=== PATIENT | female | born 1970 | race Caucasian/White ===

== ENCOUNTER 2018-04-04 03:27 | Inpatient (IN) | payer SELFPAY ==
[~2018-04-04] VITALS: Ht 172.7 cm; Wt 68.0 kg
[2018-04-04 03:58] LABS: BASO # 0.1 x10^3/uL (0.0-0.2); BASO % 1 % (0-3); EOS # 0.1 x10^3/uL (0.0-0.7); EOS % 2 % (0-3); HEMOGLOBIN 11.6 g/dL (12.0-15.5); LYMPH # 2.7 x10^3/uL (1.0-4.8); LYMPH % 31 % (24-48); MEAN CORPUSCULAR HEMOGLOBIN 26 pg (25-35); MEAN CORPUSCULAR HGB CONC 33 g/dL (31-37); MEAN CORPUSCULAR VOLUME 79 fL (79-100); MONO # 0.7 x10^3/uL (0.0-1.1); MONO % 8 % (0-9); NEUT % 58 % (31-73); PLATELET COUNT 386 x10^3/uL (140-400); RED BLOOD COUNT 4.42 x10^6/uL (3.50-5.40); RED CELL DISTRIBUTION WIDTH 23.2 % (11.5-14.5); WHITE BLOOD COUNT 8.7 x10^3/uL (4.0-11.0)
[2018-04-04 04:05] LABS: CALCIUM 9.8 mg/dL (8.5-10.1); CREATININE 0.7 mg/dL (0.6-1.0); GFR 88.6; POTASSIUM 3.8 mmol/L (3.5-5.1)
[2018-04-04 04:10] LABS: ALBUMIN 3.3 g/dL (3.4-5.0); ALBUMIN/GLOBULIN RATIO 1.1 (1.0-1.7); TOTAL BILIRUBIN 0.1 mg/dL (0.2-1.0); TOTAL PROTEIN 6.4 g/dL (6.4-8.2)
[2018-04-04] MEDS: NITROGLYCERIN SUBLINGUAL 0.4 MG BOTTLE OF 25. SL PRN ×3 (04:20→06:37)
--- NOTE | 2018-04-04 04:25 | PHYS DOC ---
Past Medical History Past Medical History: Anxiety, Diabetes-Type II Additional Past Medical Histor: Panic Attacks Past Surgical History: No Surgical History Additional Information: 1 ppd Alcohol Use: None Drug Use: Marijuana Adult General Chief Complaint Chief Complaint: CHEST PAIN HPI HPI Patient is a 48 year old male with history of type 2 diabetes anxiety presents with acute onset left-sided chest pain rating to left shoulder while having sexual intercourse with her significant other. Described as soreness. Initially associated with shortness of breath. Patient denies nausea vomiting, sweats. No back pain. Has not had prior episodes of chest pain. No leg pain or swelling. No other acute symptoms or complaints. [] Review of Systems Review of Systems Review symptoms and says... All other review symptoms are negative. [] All other systems were reviewed and found to be within normal limits, except as documented in this note. Current Medications Current Medications Current Medications Medications (Trade) Dose Ordered Sig/Dagoberto Start Time Stop Time Status Last Admin Dose Admin Aspirin (Children'S Aspirin) 324 mg 1X ONCE 04/04/18 04:45 04/04/18 04:46 UNV Nitroglycerin (Nitrostat) 0.4 mg PRN Q5MIN PRN 04/04/18 04:15 04/04/18 04:20 0.4 MG Allergies Allergies Allergies Coded Allergies Type Severity Reaction Last Updated Verified No Known Drug Allergies 04/04/18 No Physical Exam Physical Exam Constitutional: Well developed, well nourished, no acute distress, non-toxic appearance. [] HENT: Normocephalic, atraumatic, bilateral external ears normal, oropharynx moist, no oral exudates, nose normal. [] Eyes: PERRLA, EOMI, conjunctiva normal, no discharge. [] Neck: Normal range of motion, no tenderness, supple, no stridor. [] Cardiovascular:Heart rate regular rhythm, no murmur [] Lungs & Thorax: Bilateral breath sounds clear to auscultation [] Abdomen: Bowel sounds normal, soft, no tenderness, no masses, no pulsatile masses. [] Skin: Warm, dry, no erythema, no rash. [] Back: No tenderness, no CVA tenderness. [] Extremities: No tenderness, no cyanosis, no clubbing, ROM intact, no edema. [] Neurologic: Alert and oriented X 3, normal motor function, normal sensory function, no focal deficits noted. [] Psychologic: Affect, anxious[] Current Patient Data Vital Signs Vital Signs Date Time Temp Pulse Resp B/P (MAP) Pulse Ox O2 Delivery O2 Flow Rate FiO2 04/04/18 04:21 67 16 133/61 (85) 99 Room Air 04/04/18 03:35 98.3 98.3 Lab Values Laboratory Tests Test 04/04/18 03:45 White Blood Count 8.7 x10^3/uL (4.0-11.0) Red Blood Count 4.42 x10^6/uL (3.50-5.40) Hemoglobin 11.6 g/dL (12.0-15.5) L Hematocrit 35.0 % (36.0-47.0) L Mean Corpuscular Volume 79 fL (79-100) Mean Corpuscular Hemoglobin 26 pg (25-35) Mean Corpuscular Hemoglobin Concent 33 g/dL (31-37) Red Cell Distribution Width 23.2 % (11.5-14.5) H Platelet Count 386 x10^3/uL (140-400) Neutrophils (%) (Auto) 58 % (31-73) Lymphocytes (%) (Auto) 31 % (24-48) Monocytes (%) (Auto) 8 % (0-9) Eosinophils (%) (Auto) 2 % (0-3) Basophils (%) (Auto) 1 % (0-3) Neutrophils # (Auto) 5.0 x10^3uL (1.8-7.7) Lymphocytes # (Auto) 2.7 x10^3/uL (1.0-4.8) Monocytes # (Auto) 0.7 x10^3/uL (0.0-1.1) Eosinophils # (Auto) 0.1 x10^3/uL (0.0-0.7) Basophils # (Auto) 0.1 x10^3/uL (0.0-0.2) Platelet Estimate Pending Sodium Level 144 mmol/L (136-145) Potassium Level 3.8 mmol/L (3.5-5.1) Chloride Level 105 mmol/L (98-107) Carbon Dioxide Level 29 mmol/L (21-32) Anion Gap 10 (6-14) Blood Urea Nitrogen 11 mg/dL (7-20) Creatinine 0.7 mg/dL (0.6-1.0) Estimated GFR (Cockcroft-Gault) 88.6 BUN/Creatinine Ratio 16 (6-20) Glucose Level 117 mg/dL (70-99) H Calcium Level 9.8 mg/dL (8.5-10.1) Total Bilirubin 0.1 mg/dL (0.2-1.0) L Aspartate Amino Transferase (AST) 17 U/L (15-37) Alanine Aminotransferase (ALT) 17 U/L (14-59) Alkaline Phosphatase 79 U/L (46-116) Troponin I Quantitative < 0.017 ng/mL (0.000-0.055) Total Protein 6.4 g/dL (6.4-8.2) Albumin 3.3 g/dL (3.4-5.0) L Albumin/Globulin Ratio 1.1 (1.0-1.7) Laboratory Tests 04/04/18 03:45 Laboratory Tests 04/04/18 03:45 EKG EKG [EKG: Normal sinus rhythm, no acute ST-T wave changes. QTC 429] Radiology/Procedures Radiology/Procedures [Chest x-ray: No acute cardiopulmonary disease.] Course & Med Decision Making Course & Med Decision Making Pertinent Labs and Imaging studies reviewed. (See chart for details) [Atypical chest pain, pain went from 92 after first nitroglycerin. Aspirin given. EKG, troponin nondiagnostic. Will admit to the hospital service for further evaluation and treatment.] Dragon Disclaimer Dragon Disclaimer This electronic medical record was generated, in whole or in part, using a voice recognition dictation system. Departure Departure Impression: Primary Impression: Chest pain Disposition: HOME, SELF-CARE Admitting Physician: Other (Dr. Galindo) Referrals: NO PCP (PCP) WASHINGTON SLADE DO Apr 04, 2018 04:25
[2018-04-04 04:44] LABS: PREG TEST PT QUAL NEGATIVE (NEG)
[2018-04-04] MEDS ORDERED: ASPIRIN CHEWABLE 81 MG TABLET. PO ONE (05:00)
[2018-04-04] MEDS ORDERED: ONDANSETRON PF 4 MG/2 ML VIAL. IV PRN (05:00)
[2018-04-04] MEDS ORDERED: MORPHINE SULFATE 4 MG/ML VIAL. IV PRN (05:00)
[2018-04-04 05:30] VITALS: BP 136/78
--- NOTE | 2018-04-04 06:03 | EKG ---
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
[2018-04-04 06:34] VITALS: BP 143/84
[2018-04-04 06:42] VITALS: BP 119/72
[2018-04-04 07:00] VITALS: BP 104/66
[2018-04-04 07:11] LABS: ANISOCYTOSIS MOD; PLT ESTIMATE ADEQUATE (ADEQUATE)
[2018-04-04] MEDS ORDERED: ACETAMINOPHEN 325 MG TABLET. PO PRN (07:30)
[2018-04-04] MEDS ORDERED: ALPRAZolam 0.5 MG TABLET PO PRN (07:30)
[2018-04-04] MEDS ORDERED: FERR325T14 PO (07:34)
[2018-04-04] MEDS ORDERED: METF500T16 PO (07:34)
[2018-04-04] MEDS ORDERED: HYDR50CA PO (07:34)
[2018-04-04] MEDS ORDERED: FLUO40CA2 PO (07:34)
--- NOTE | 2018-04-04 08:02 | RAD ---
Single view of the chest. 04/04/2018 4:14 AM Indication: chest pain Comparison: None Findings: There is no focal consolidation. There is no pleural effusion or pneumothorax. The cardiomediastinal silhouette and pulmonary vasculature are within normal limits. No acute osseous abnormalities are seen. Impression: No evidence of acute cardiopulmonary process. Electronically signed by: Brian Farris MD (04/04/2018 7:58 AM) [id number]
--- NOTE | 2018-04-04 09:19 | PDOC2 ---
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 Reports that this started while having sex/ 15 minutes on she started having this heavy sharp discomfort to her left rib cage region that went behind her left breast. This was associated with SOA particularly unable to take deep breath due to the pain and associated with nausea and tingling of her left fingertips. She did put pressure in her ribs and this got better. She was supine at that time and she was not the one doing the exertion and there was no associated pressure in her thorax at that time. Her symptoms lasted about 1hr and relieved after ASA and NTG. She does have REA at times but no exertional CP prior to this and no prior hx of CAD. No recent long distance travel, routine NSAID use, recent falls or injury. No hx of prior VTE, arrhythmias nor PUD. She does smoke and has DM and is not taking her metformin. PAST MEDICAL HISTORY Cardiovascular: No pertinent hx Pulmonary: No pertinent hx CENTRAL NERVOUS SYSTEM: Other (No pertinent history) GI: No pertinent hx Heme/Onc: No pertinent hx Hepatobiliary: No pertinent hx Psych: Anxiety Musculoskeletal: Osteoarthritis Rheumatologic: No pertinent hx Infectious disease: No pertinent hx ENT: No pertinent hx Renal/: No pertinent hx Endocrine: Diabetes (2) Dermatology: No pertinent hx PAST SURGICAL HISTORY Past Surgical History: Appendectomy, Cholecystectomy FAMILY HISTORY Family History noncontributory to CV SOCIAL HISTORY Smoke: <1 pack per day ALCOHOL: none Lives: Friends (fiancee) CURRENT MEDICATIONS CURRENT MEDICATIONS Current Medications Medications (Trade) Dose Ordered Sig/Dagoberto Route PRN Reason Start Time Stop Time Status Last Admin Dose Admin Nitroglycerin (Nitrostat) 0.4 mg PRN Q5MIN PRN SL CHEST PAIN 04/04/18 04:15 04/04/18 06:37 Aspirin (Children'S Aspirin) 324 mg 1X ONCE PO 04/04/18 05:00 04/04/18 05:01 DC 04/04/18 04:53 Ondansetron HCl (Zofran) 4 mg PRN Q8HRS PRN IV NAUSEA/VOMITING 1ST CHOICE 04/04/18 05:00 04/05/18 04:59 04/04/18 06:17 Morphine Sulfate (Morphine Sulfate) 4 mg PRN Q2HR PRN IV SEVERE PAIN 04/04/18 05:00 04/05/18 04:59 04/04/18 05:43 Acetaminophen (Tylenol) 650 mg PRN Q6HRS PRN PO pain 04/04/18 07:30 04/04/18 08:25 Alprazolam (Xanax) 0.5 mg PRN Q8HRS PRN PO ANXIETY / AGITATION 04/04/18 07:30 04/04/18 08:25 ALLERGIES ALLERGIES: Coded Allergies: No Known Drug Allergies (Unverified , 04/04/18) ROS Review of System 14 point ROS evaluated with pertinent positives noted per HPI PHYSICAL EXAM General: Alert, Oriented X3, Cooperative, No acute distress HEENT: Atraumatic, Mucous membr. moist/pink Lungs: Clear to auscultation, Normal air movement Heart: Regular rate (SR no ectopies), Normal S1, Normal S2, No murmurs Abdomen: Soft, No tenderness Extremities: No cyanosis, No edema Skin: No breakdown, No significant lesion Neuro: Normal speech, Sensation intact Psych/Mental Status: Mental status NL, Mood NL MUSCULOSKELETAL: Osteoarthritic changes both hands VITALS VITALS Vital Signs Date Time Temp Pulse Resp B/P (MAP) Pulse Ox O2 Delivery O2 Flow Rate FiO2 04/04/18 07:00 98.4 64 16 104/66 (79) 100 Nasal Cannula 2.0 98.4 LABS Lab: Laboratory Tests Test 04/04/18 03:45 04/04/18 08:14 04/04/18 08:15 White Blood Count 8.7 x10^3/uL (4.0-11.0) Red Blood Count 4.42 x10^6/uL (3.50-5.40) Hemoglobin 11.6 g/dL (12.0-15.5) Hematocrit 35.0 % (36.0-47.0) Mean Corpuscular Volume 79 fL (79-100) Mean Corpuscular Hemoglobin 26 pg (25-35) Mean Corpuscular Hemoglobin Concent 33 g/dL (31-37) Red Cell Distribution Width 23.2 % (11.5-14.5) Platelet Count 386 x10^3/uL (140-400) Neutrophils (%) (Auto) 58 % (31-73) Lymphocytes (%) (Auto) 31 % (24-48) Monocytes (%) (Auto) 8 % (0-9) Eosinophils (%) (Auto) 2 % (0-3) Basophils (%) (Auto) 1 % (0-3) Neutrophils # (Auto) 5.0 x10^3uL (1.8-7.7) Lymphocytes # (Auto) 2.7 x10^3/uL (1.0-4.8) Monocytes # (Auto) 0.7 x10^3/uL (0.0-1.1) Eosinophils # (Auto) 0.1 x10^3/uL (0.0-0.7) Basophils # (Auto) 0.1 x10^3/uL (0.0-0.2) Platelet Estimate Adequate (ADEQUATE) Anisocytosis Mod D-Dimer (Maria Del Carmen) 0.36 ug/mlFEU (0.00-0.50) Sodium Level 144 mmol/L (136-145) Potassium Level 3.8 mmol/L (3.5-5.1) Chloride Level 105 mmol/L (98-107) Carbon Dioxide Level 29 mmol/L (21-32) Anion Gap 10 (6-14) Blood Urea Nitrogen 11 mg/dL (7-20) Creatinine 0.7 mg/dL (0.6-1.0) Estimated GFR (Cockcroft-Gault) 88.6 BUN/Creatinine Ratio 16 (6-20) Glucose Level 117 mg/dL (70-99) Calcium Level 9.8 mg/dL (8.5-10.1) Total Bilirubin 0.1 mg/dL (0.2-1.0) Aspartate Amino Transf (AST/SGOT) 17 U/L (15-37) Alanine Aminotransferase (ALT/SGPT) 17 U/L (14-59) Alkaline Phosphatase 79 U/L (46-116) Troponin I Quantitative < 0.017 ng/mL (0.000-0.055) < 0.017 ng/mL (0.000-0.055) Total Protein 6.4 g/dL (6.4-8.2) Albumin 3.3 g/dL (3.4-5.0) Albumin/Globulin Ratio 1.1 (1.0-1.7) Serum Test, Qualitative Negative (NEG) Glucose (Fingerstick) 130 mg/dL (70-99) ASSESSMENT/PLAN ASSESSMENT/PLAN 1. Chest pain: mixed features. 2. DM2: does not take her metformin at home. 3. Tobaccoism 4. Marijuana use 5. Hx of anxiety/panic: has not been taking her prozac. Recommendations 1. Smoking and marijuana cessation 2. TSH, lipids 3. Stress echo today. May DC if this is unremarkable. KAYY MESA MD 04/05/18 0754: CARDIAC CONSULT ASSESSMENT/PLAN ASSESSMENT/PLAN Patient seen and examined 04/04/18 (late entry). Agree with GOLF STARTER AND RANGER's assessment and plan. Chest pain with atypical features Myocardial infarction has been ruled out Exercise stress echocardiogram did not show any significant ischemia. Left ventricle systolic function is normal. Okay for discharge from cardiac standpoint. Thank you for your consultation. MARISA PIÑA APRN Apr 04, 2018 09:19 KAYY MESA MD Apr 05, 2018 07:54
[2018-04-04] MEDS ORDERED: DEXTROSE 50% 25 GM / 50ML DISP.SYRIN. IV PRN (09:45)
[2018-04-04 10:25] LABS: CHOLESTEROL/HDL RATIO 4.4
[2018-04-04] MEDS ORDERED: INSULIN LISPRO 300 UNITS/3 ML INSULN.PEN. SQ SCH (12:00)
--- NOTE | 2018-04-04 13:22 | CARD ---
MR#: [id number] Date of Study: 04/04/2018 Ordering Physician: MARISA PIÑA, Referring Physician: VETO RILEY, Tech: Juliette Coley CS APPROVED REPORT INDICATION Chest Pain RISK FACTORS Diabetes Smoking PROCEDURE The patient underwent an Exercise Stress Test using the Bernard Protocol. Blood pressure, heart rate, a nd EKG were monitored. An Echocardiogram was performed by zone maintenance technician in four stages in quad fashion. At peak stress four se lected images were obtained and placed side by side with resting images for comparison. STRESS ECHO FINDINGS The resting Echocardiogram showed normal left ventricular systolic contractility with an estimated Ej ection Fraction of about 60 %. The Resting Echocardiogram showed normal augmentation of myocardial wall segments using a 16 segment model. The Stress Echocardiogram showed normal augmentation of myocardial wall segments using a 16 segment m bo. The Stress Echocardiogram left ventricular systolic contractility has an estimated Ejection Fraction of about 70%. Test Type: Exercise Stress Nurse/Tech: shasta Honeycutt RN Test Indications: chest pain Cardiac History and Allergies: smoker, DM Medications: see EMR Medical History: see EMR Resting ECG: SR Resting Heart Rate: 61 bpm Resting Blood Pressure: 143/84mmHg Pretest Chest Pain: None Nurse/Tech Notes lungs CTA, S1S2 Stress Symptoms No chest pain, dyspnea POST EXERCISE Reason for Termination: Reached target heart rate Target HR: 145 Max HR: 159 bpm 93% of Maximum Predicted HR: 170 bpm Exercise duration: 10:21 min:sec, Stage Max Blood Pressure: 170/80mmHg Blood Pressure response to exercise: Normal blood pressure response during stress. Heart Rate response to exercise: normal response Chest Pain: No. Arrhythmia: No. ST Change: No. INTERPRETATION Stress EKG Conclusion: The resting EKG shows a sinus rhythm with minimal ST segment changes. The stress EKG showed no significant changes from baseline. No EKG evidence of stressed induced ischemia. Preliminary Notification Critical Value: No <Conclusion> Good exercise tolerance. No chest pain with exertion. No EKG evidence of stressed induced ischemia. Normal left ventricular systolic function at rest. Normal left ventricular systolic function with exertion. No regional wall motion abnormalities. Low risk treadmill echo stress test. Signed by : Werner Andrade MD Electronically Approved : 04/04/2018 13:21:07
--- NOTE | 2018-04-04 16:08 | RAD ---
Thyroid ultrasound, 04/04/2018: HISTORY: Hyperthyroidism The right lobe of the gland measures 6.0 x 3.5 x 2.8 cm while the left lobe of the gland measures 7.2 x 3.1 x 2.9 cm. There are multiple bilateral thyroid nodules. The largest of these lies in the lower pole of the left lobe. This nodule measures 3.4 x 3.9 x 3.1 cm. It is heterogeneous with predominantly isoechoic solid components as well as smaller cystic components. Its margins are smooth. An internal calcification is noted. There is an adjacent 2.4 x 2.5 x 1.9 cm nodule in the midportion of the left lobe of the gland with similar sonographic characteristics. On the right, there is a dominant heterogeneous solid nodule in the midportion of the gland measuring 2.9 x 3.2 x 2.4 cm. It is predominately solid with only minimal cystic component. Its margins are smooth. There are several other smaller complex and cystic nodules in both lobes of the gland. IMPRESSION: Multinodular thyroid gland as described above. The sonographic characteristics of these individual nodules are nonspecific. Ultrasound-guided biopsy of the largest nodule in both lobes should be considered for further evaluation. Electronically signed by: Glenn Keen MD (04/04/2018 4:04 PM) [facility]
[2018-04-04] MEDS ORDERED: FAMO-63 PO (17:12)
== END 2018-04-04 18:10 | disposition home or self-care (01) | DRG 313 ==
LOC: ER 03:27 → 6 SOUTH 04:45
PROVIDERS: ADMIT Internal Medicine; ATTEND Internal Medicine
DX: R07.89 Other chest pain (principal); E11.9 Type 2 diabetes mellitus without complications; F12.90 Cannabis use, unspecified, uncomplicated; F17.210 Nicotine dependence, cigarettes, uncomplicated; F41.0 Panic disorder [episodic paroxysmal anxiety]; M19.90 Unspecified osteoarthritis, unspecified site; Z90.49 Acquired absence of other specified parts of digestive tract; Z79.899 Other long term (current) drug therapy; Z79.84 Long term (current) use of oral hypoglycemic drugs
CPT/HCPCS: 36415; 71045; 76536; 80053; 80061; 82465; 82962; 84439; 84443; 84445; 84484; 84703; 85025; 85379; 90471; 90756; 93005; 93017; 93350; J1815; J2270; J2405; Q2035

== ENCOUNTER 2021-10-18 15:00 | Emergency (ER) | payer SELFPAY ==
[~2021-10-18] VITALS: Ht 172.7 cm; Wt 81.0 kg
[~2021-10-18 15:00] MED LIST: FAMO-63 PO; FERR325T14 PO; FLUO40CA2 PO; HYDR50CA PO; METF500T16 PO
[2021-10-18] MEDS ORDERED: HYDROcodone/APAP 5/325MG 1 TAB TABLET PO ONE (15:30)
[2021-10-18] MEDS ORDERED: LIDOCAINE/EPI/TETRACAINE TOPICAL GEL 3 ML. TP ONE (15:30)
[2021-10-18] MEDS ORDERED: NEOMY/BACITR/POLYMYXIN OINT PACKET. TP ONE (15:30)
[2021-10-18] MEDS ORDERED: CYCLOBENZAPRINE 10 MG TABLET. PO ONE (15:30)
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
--- NOTE | 2021-10-18 15:59 | RAD ---
AP lateral and oblique views of bilateral hands no comparison. Fell off of report. FINDINGS: Bilaterally there are vertically oriented fractures of the proximal aspect of the fifth proximal phal anx. Bilaterally these fractures extend into the articular surface. There is mild displacement of the fracture fragment on the left. There is relatively good alignment of the fracture on the right. Electronically signed by: Gopi Church MD (10/18/2021 3:56 PM) [facility]
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
[2021-10-18] MEDS ORDERED: OXYC-314 PO (17:29)
[2021-10-18 17:45] VITALS: BP 117/78
== END 2021-10-18 17:45 | disposition home or self-care (01) ==
LOC: ER 15:00
DX: S62.617A Displaced fracture of proximal phalanx of left little finger, initial encounter for closed fracture (principal); S62.646A Nondisplaced fracture of proximal phalanx of right little finger, initial encounter for closed fracture; S50.811A Abrasion of right forearm, initial encounter; S50.812A Abrasion of left forearm, initial encounter; E11.9 Type 2 diabetes mellitus without complications; F17.200 Nicotine dependence, unspecified, uncomplicated; V00.848A Other accident with standing micro-mobility pedestrian conveyance, initial encounter; Y92.488 Other paved roadways as the place of occurrence of the external cause; Y93.I9 Activity, other involving external motion; Y99.8 Other external cause status
CPT/HCPCS: 29125; 99284; 73090-50; 73130-50